=== PATIENT | female | born 1950 | race Caucasian/White ===

== ENCOUNTER → 2018-03-21 | Outpatient (CLI) | payer OTHER ==
--- NOTE | 2018-03-21 15:58 | RAD ---
Five-view cervical spine 03/21/2018 CLINICAL INDICATION: Cervicalgia with no known injury. COMPARISON: None. FINDINGS: Normal cervical alignment. Vertebral body heights are maintained. Minimal disc degeneration at C4-C5 C5-C6 and C6-C7 with disc space narrowing. There is multilevel uncovertebral and facet hypertrophy from C3-C4 through C6-C7 resulting in mild neural foraminal narrowing bilaterally at C5-C6. No predental space widening. No prevertebral soft tissue thickening. IMPRESSION: Mild multilevel cervical spondylosis resulting in at least mild bony neuroforaminal narrowing at C5-C6. Electronically signed by: Torin Murray MD (03/21/2018 3:55 PM) [id number]
--- NOTE | 2018-03-21 16:00 | RAD ---
Five-view lumbar spine 03/21/2018 CLINICAL INDICATION: Lower extremity radiculopathy. No known injury. COMPARISON: None. FINDINGS: There are 5 nonrib-bearing lumbar-type vertebral bodies of the 1st considered L1. There is mild lumbar spinal curvature. No significant listhesis. Vertebral body heights are maintained. Multilevel mild lower lumbar spondylosis greatest to a mild degree at L4-L5 and L5-S1 with disc space narrowing, marginal osteophyte formation and endplate sclerosis. Mild L4-L5 and moderate L5-S1 facet hypertrophy. IMPRESSION: Lower lumbar spondylosis, greatest at L4-L5 and L5-S1. Electronically signed by: Torin Murray MD (03/21/2018 3:57 PM) [id number]
== END | disposition home or self-care (01) ==
LOC: PMG 10:42
PROVIDERS: ATTEND Physician Assistant Medical
DX: M47.892 Other spondylosis, cervical region (principal); M48.02 Spinal stenosis, cervical region; M50.321 Other cervical disc degeneration at C4-C5 level; M47.896 Other spondylosis, lumbar region; M25.78 Osteophyte, vertebrae; M48.061 Spinal stenosis, lumbar region without neurogenic claudication
CPT/HCPCS: 72050; 72110

== ENCOUNTER → 2019-04-12 | Outpatient (CLI) | payer MEDICARE ==
--- NOTE | 2019-04-12 15:02 | RAD ---
EXAM: Dual energy x-ray absorptiometry (DEXA). HISTORY: Postmenopausal female presents for osteoporosis screening. COMPARISON: 02/19/2016. TECHNIQUE: Dual energy x-ray absorptiometry of the lumbar spine and right hip was performed. Calculation of bone mineral density based on standard deviations above or below the expected young adult normal value (T-score) was completed. FINDINGS: The average bone mineral density in the 1st through 4th lumbar vertebrae is 0.990 g/cmxcm, corresponding with a T-score of -1.3. There has been a 13.9% increase in density of the lumbar spine compared to the prior study. The average total bone mineral density in the right hip is 0.666 g/cmxcm, corresponding with a T-score of -2.3. There has been a 1.7% decrease in density of the right hip compared to the prior study. IMPRESSION: Osteopenia. Note: Definitions established by the World [employer] Organization: 1. Normal: T-score is -1.0 or above. 2. Osteopenia: T-score is between -1.0 and -2.5 . 3. Osteoporosis: T-score is -2.5 or below. Electronically signed by: Shelley Shipman MD (04/12/2019 2:59 PM) [id number]
== END | disposition home or self-care (01) ==
LOC: DXRAD 13:57
PROVIDERS: ATTEND Physician Assistant Medical
DX: M81.0 Age-related osteoporosis without current pathological fracture (principal)
CPT/HCPCS: 77080

== ENCOUNTER → 2019-11-05 | Outpatient (CLI) | payer MEDICARE ==
--- NOTE | 2019-11-05 13:59 | RAD ---
EXAM: KNEE LEFT 2V, KNEE STANDING BILAT AP. HISTORY: Left knee pain. COMPARISON: None. FINDINGS: No fractures are identified bilaterally. On the left, there is moderate lateral compartmental joint space narrowing. There is a small joint effusion. Alignment is maintained. Subcutaneous varicosities are noted laterally at the knee. On the right, there appears to be mild lateral compartmental joint space narrowing. IMPRESSION: 1. Bilateral compartmental predominant osteoarthritis appears moderate on the left and mild on the right. Electronically signed by: Asim Fuller MD (11/05/2019 1:56 PM) [id number]
== END | disposition home or self-care (01) ==
LOC: DXRAD 13:15
PROVIDERS: ATTEND Orthopaedic Surgery Sports Medicine
DX: M17.0 Bilateral primary osteoarthritis of knee (principal); M25.462 Effusion, left knee; I83.93 Asymptomatic varicose veins of bilateral lower extremities
CPT/HCPCS: 73560; 73565